=== PATIENT | male | born 1990 | race Two or more races ===

== ENCOUNTER 2020-06-02 21:49 | Emergency (ER) | payer OTHER ==
--- NOTE | 2020-06-02 23:31 | ER Document Report ---
ED Flu Like - General Chief Complaint: Flu Symptoms Stated Complaint: NAUSEA/VOMITING Time Seen by Provider: 06/02/20 23:04 Notes: CHIEF COMPLAINT: Sore throat congestion sinus pain HPI: 29-year-old otherwise healthy male presenting for sinus congestion over the last 2 days, mild sore throat, slight cough. Slight chest discomfort with coughing only. No definitive fever. Denies abdominal pain nausea vomiting ROS: See HPI - all other systems were reviewed and are otherwise negative Constitutional: no fever Eyes: no drainage, no blurred vision ENT: + runny nose, + sore throat Cardiovascular: + chest pain with coughing only Resp: no SOB, + cough GI: no vomiting, no diarrhea, no abdominal pain : no dysuria Integumentary: no rash Allergy: no hives Musculoskeletal: Positive myalgia Neurological: no numbness/tingling, no weakness MEDICATIONS: I agree with the patient medications as charted by the RN. ALLERGIES: I agree with the allergies as charted by the RN. PAST MEDICAL HISTORY/PAST SURGICAL HISTORY: Reviewed and agree as charted by RN. SOCIAL HISTORY: Reviewed and agree as charted by RN. FAMILY HISTORY: No significant familial comorbid conditions directly related to patient complaint EXAM: Reviewed vital signs as charted by RN. CONSTITUTIONAL: Alert and oriented and responds appropriately to questions. Well-appearing; well-nourished HEAD: Normocephalic; atraumatic EYES: PERRL; Conjunctivae clear, sclerae non-icteric ENT: normal nose; positive clear rhinorrhea; moist mucous membranes; pharynx without lesions noted, no uvula edema or deviation, no tonsillar hypertrophy, phonation normal NECK: Supple without meningismus; non-tender; no cervical lymphadenopathy, no masses CARD: RRR; no murmurs, no clicks, no rubs, no gallops; symmetric distal pulses RESP: Normal chest excursion without splinting or tachypnea; breath sounds clear and equal bilaterally; no wheezes, no rhonchi, no rales, pulse oximetry 100% on room air not hypoxic ABD/GI: Normal bowel sounds; non-distended; soft, non-tender, no rebound, no guarding; no palpable organomegaly or masses. BACK: The back appears normal and is non-tender to palpation, there is no CVA tenderness EXT: Normal ROM in all joints; non-tender to palpation; no cyanosis, no effusions, no edema SKIN: Normal color for age and race; warm; dry; good turgor; no acute lesions noted NEURO: Moves all extremities equally; Motor and sensory function intact PSYCH: The patient's mood and manner are appropriate. Grooming and personal hygiene are appropriate. MDM: 29-year-old male presenting for flulike symptoms, sinus congestion sore throat mild slight dry cough. Chest pain with coughing only. Low suspicion for ACS. Given the 1 to 2-day history low suspicion for pneumonia or infiltrate. Will check rapid strep, influenza, COVID patient will be person under investigation if prior studies are negative Past Medical History - Social History Smoking Status: Former Smoker Frequency of alcohol use: Rare Drug Abuse: None Family History: Reviewed & Not Pertinent Physical Exam - Vital signs Vitals: Temp Pulse Resp BP Pulse Ox 99.5 F 84 18 134/71 H 100 06/02/20 22:23 06/02/20 22:23 06/02/20 22:23 06/02/20 22:23 06/02/20 22:23 Course - Re-evaluation Re-evalutation: 06/03/20 00:24 Rapid flu and strep are both negative patient will be considered a person under investigation for COVID-19 at this time self quarantine at home symptomatic treatment - Vital Signs Vital signs: Temp Pulse Resp BP Pulse Ox 99.1 F 84 18 134/71 H 100 06/02/20 23:00 06/02/20 22:23 06/02/20 22:23 06/02/20 22:23 06/02/20 22:23 Discharge - Discharge Clinical Impression: Acute rhinitis, Person under investigation for COVID-19 Condition: Stable Disposition: HOME, SELF-CARE Additional Instructions: You are considered a person under investigation for COVID-19 at this time, self quarantine at home until you have a negative test result which may take 2 to 5 days. You should hear from someone at the hospital about your test results. Take Voltaren for body ache, Sudafed for nasal and sinus congestion. Return for worsening symptoms Prescriptions: Pseudoephedrine HCl [Sudafed 12 Hour] 120 mg PO BID #20 tablet.er Diclofenac Sodium [Voltaren 50 Mg Tablet.Dr] 50 mg PO BID #20 tablet.dr Forms: Return to Work
[2020-06-03 00:13] LABS: A TYPE INFLUENZA AG NEGATIVE (NEGATIVE); B INFLUENZA AG NEGATIVE (NEGATIVE)
[2020-06-03 01:04] VITALS: BP 130/71
== END 2020-06-03 00:59 | disposition home or self-care (01) ==
LOC: ER 21:49
DX: J00 Acute nasopharyngitis [common cold] (principal); Z20.828 Contact with and (suspected) exposure to other viral communicable diseases; R11.2 Nausea with vomiting, unspecified; R05 Cough; R07.9 Chest pain, unspecified
CPT/HCPCS: 99283; 87070; 87880; 87635; 87804; C9803

== ENCOUNTER 2020-06-14 19:43 | Emergency (ER) | payer OTHER ==
[2020-06-14 20:15] VITALS: BP 128/67
--- NOTE | 2020-06-14 20:38 | ER Document Report ---
HPI - HPI Patient complains to provider of: Right heel pain Time Seen by Provider: 06/14/20 20:34 Notes: 30-year-old male to the emergency department with complaints of right heel pain that started while he was playing soccer today. He states he was stepped on by another player on the foot. He states that he has enough pain that he feels like he cannot bear weight on the heel. He states that he also has some bruising to the top of his left great toe. He has not taken anything prior to arrival. He declines any pain medicine here in the emergency department. He states that he has some recovering plantar fasciitis in the right foot and this seems to aggravate it. He does have an orthopedist that he follows for this. - ROS Systems Reviewed and Negative: Yes All other systems reviewed and negative - CONSTITUTIONAL Constitutional: DENIES: Fever, Chills - EENT EENT: DENIES: Sore Throat, Ear Pain - NEURO Neurology: DENIES: Headache, Weakness - CARDIOVASCULAR Cardiovascular: DENIES: Chest pain - RESPIRATORY Respiratory: DENIES: Trouble Breathing, Coughing - GASTROINTESTINAL Gastrointestinal: DENIES: Abdominal Pain, Nausea, Patient vomiting, Diarrhea - MUSCULOSKELETAL Musculoskeletal: REPORTS: Extremity pain Notes: Right heel pain and left great toe pain - DERM Skin Color: Normal Past Medical History - General Information source: Patient - Social History Smoking Status: Never Smoker Frequency of alcohol use: None Drug Abuse: None Family History: Reviewed & Not Pertinent Vertical Provider Document - CONSTITUTIONAL Exam Limitations: No Limitations General Appearance: WD/WN - HEENT HEENT: Atraumatic, Normocephalic, PERRLA - NECK Neck: Normal Inspection, Supple - RESPIRATORY Respiratory: Breath Sounds Normal, No Respiratory Distress - CARDIOVASCULAR Cardiovascular: Regular Rate, Regular Rhythm, No Murmur - GI/ABDOMEN Gastrointestinal: Abdomen Soft, Abdomen Non-Tender - MUSCULOSKELETAL/EXTREMETIES Notes: There is tenderness to palpation over the bottom of the right heel with some mild edema. There is no gross deformity. There is no ecchymosis. Patient has pain when he ambulates on the heel. He also has mild ecchymosis to the left great toe on the dorsum aspect. He can wiggle all toes, DP pulses are intact and equal. Nontender to palpation of the bilateral ankles, knees, hips. - NEURO Level of Consciousness: Awake, Alert - DERM Integumentary: Warm, No Rash Course - Re-evaluation Re-evalutation: 06/14/20 23:57 Impression: Right heel injury, foot injury. This may have aggravated his plantar fasciitis or other fascia/ligamentous structures. Placed in a postop shoe and have him follow with his orthopedist. He states he has an appointment next week. Encouraged him to return if anything worsens. He declines pain medicine here in the emergency department states he has Naprosyn. Discussed rad iology findings with him and he agrees with the plan. - Vital Signs Vital signs: Temp Pulse Resp BP Pulse Ox 98.4 F 72 20 128/67 H 98 06/14/20 20:13 06/14/20 20:13 06/14/20 20:13 06/14/20 20:13 06/14/20 20:13 - Diagnostic Test Radiology reviewed: Image reviewed, Reports reviewed Discharge - Discharge Clinical Impression: Right foot pain Injury of right heel Qualifiers: Encounter type: initial encounter Qualified Code(s): S99.921A - Unspecified injury of right foot, initial encounter Contusion, foot Qualifiers: Encounter type: initial encounter Laterality: left Qualified Code(s): S90.32XA - Contusion of left foot, initial encounter Condition: Stable Disposition: HOME, SELF-CARE Instructions: [facility] ([facility]) Additional Instructions: FOLLOW UP WITH THE ORTHOPEDIST LISTED WITHOUT FAIL. USE POST OP SHOE. NO SPORTS UNTIL CLEARED BY ORTHOPEDIST OR PRIMARY CARE. MOTRIN. ICE THE FOOT THREE TIMES A DAY FOR 20 MINUTES. Prescriptions: Ibuprofen [Motrin 600 mg Tablet] 600 mg PO Q8HP PRN #24 tablet PRN Reason: Referrals: NICK BE MD [ACTIVE STAFF] - Follow up in 3-5 days (for orthopedic follow up)
--- NOTE | 2020-06-14 21:27 | RADIOLOGY REPORT (SQ) ---
EXAM DESCRIPTION: XR FOOT 3 OR MORE VIEWS BILATERAL COMPLETED DATE/TME: 06/14/2020 20:38 CLINICAL HISTORY: 30 years, Male, foot injuries COMPARISON: None. NUMBER OF VIEWS: 6 views TECHNIQUE: Frontal, oblique, and lateral radiographs of both feet were obtained LIMITATIONS: None. FINDINGS: Visualized osseous structures are normal in appearance. Joint spaces are well-maintained. No acute fracture or dislocation is evident. IMPRESSION: No osseous anomaly. copyright 2010 [employer]- All Rights Reserved
== END 2020-06-14 22:10 | disposition home or self-care (01) ==
LOC: ER 19:43
DX: S99.921A Unspecified injury of right foot, initial encounter (principal); S90.112A Contusion of left great toe without damage to nail, initial encounter; W50.0XXA Accidental hit or strike by another person, initial encounter; Y93.66 Activity, soccer; M72.2 Plantar fascial fibromatosis
CPT/HCPCS: 99283